=== PATIENT | female | born 1990 ===

== ENCOUNTER 2017-08-11 13:32 | Emergency (ER) | payer OTHER, BC ==
[2017-08-11 13:45] VITALS: BP 113/70; PULSE 76; RESP 16; TEMP 97.5; O2SAT 99
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
[2017-08-12 08:22] LABS: HEPATITIS B SURFACE AG Negative (NEGATIVE)
[2017-08-12 08:27] LABS: HEPATITIS B CORE AB NEGATIVE (NEGATIVE)
== END 2017-08-11 15:00 | disposition home or self-care (01) ==
LOC: H.ER 13:32
DX: Z77.21 Contact with and (suspected) exposure to potentially hazardous body fluids (principal); Y08.89XA Assault by other specified means, initial encounter

== ENCOUNTER 2017-08-22 06:57 | Emergency (ER) | payer OTHER, BC ==
[2017-08-22 07:17] VITALS: TEMP 97.3
[2017-08-22] MEDS ORDERED: Sodium Chloride 0.9% 1,000 ML IV ONE (07:42)
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
[2017-08-22 07:57] LABS: BASO % 0.2 % (0.0-2.0); EOS # 0.1 K/uL (0.0-0.7); EOS % 1.5 % (0.0-4.0); HEMOGLOBIN 13.4 g/dL (12.0-16.0); LYMPH # 2.3 K/uL (1.0-4.3); LYMPH % 26.2 % (20.0-40.0); MEAN CELL VOLUME 85.3 fl (81.0-99.0); MEAN CORPUSCULAR HEMOGLOBIN 28.4 pg (27.0-31.0); MEAN CORPUSCULAR HGB CONC 33.3 g/dL (33.0-37.0); MONO # 0.5 K/uL (0.0-0.8); MONO % 5.6 % (0.0-10.0); NEUT # 5.8 K/uL (1.8-7.0); NEUT % 66.5 % (50.0-75.0); NRBC % 0.1 % (0.0-0.0); RBC 4.73 Mil/uL (3.80-5.20); RED CELL DISTRIBUTION WIDTH 14.5 % (11.5-14.5); WHITE BLOOD COUNT 8.7 K/uL (4.8-10.8)
[2017-08-22 08:10] LABS: CALCIUM 9.4 mg/dL (8.4-10.2); GFR AFRICAN-AMERICAN > 60; GFR NON-AFRICAN AMERICAN > 60
[2017-08-22 08:14] LABS: INR 1.1 (0.9-1.2); PROTHROMBIN TIME 12.3 Seconds (9.8-13.1)
[2017-08-22 08:15] LABS: PARTIAL THROMBOPLASTIN TIME 28.5 Seconds (25.6-37.1)
[2017-08-22] MEDS ORDERED: Iohexol 300 100 ML IJ ONE (08:16)
[2017-08-22] MEDS ORDERED: Sodium Chloride 0.9% 50 ML IV ONE (08:16)
[2017-08-22 08:25] LABS: BLOOD UREA NITROGEN 10 mg/dl (7-17)
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
[2017-08-22 11:18] VITALS: RESP 16
--- NOTE | 2017-08-22 12:32 | CARD ---
APPROVED REPORT EKG Measurement Heart [id number] NM [id number] <Conclusion> Normal sinus rhythm Normal ECG
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
[2017-08-22 13:22] VITALS: BP 113/86; PULSE 67; O2SAT 98
== END 2017-08-22 13:21 | disposition home or self-care (01) ==
LOC: H.ER 06:57
DX: S09.90XA Unspecified injury of head, initial encounter (principal); S49.92XA Unspecified injury of left shoulder and upper arm, initial encounter; V03.10XA Pedestrian on foot injured in collision with car, pick-up truck or van in traffic accident, initial encounter; Y92.410 Unspecified street and highway as the place of occurrence of the external cause; J45.909 Unspecified asthma, uncomplicated
CPT/HCPCS: 70450; 71260; 72125; 72128; 72131; 73030; 73080; 74177; 80048; 81025; 84484; 84703; 85025; 85610; 85730; 93005; 96374; 96376; 99284; J2270; J7040; Q9967

== ENCOUNTER 2017-08-27 17:51 | Emergency (ER) | payer OTHER, BC ==
[2017-08-27 18:55] VITALS: BP 114/71; PULSE 73; RESP 16; TEMP 98.6; O2SAT 99
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
[2017-08-27] MEDS ORDERED: Acetaminophen-Codeine 300/30 mg Tab PO ONE (22:32)
== END 2017-08-28 00:29 | disposition home or self-care (01) ==
LOC: H.ER 17:51
DX: M54.9 Dorsalgia, unspecified (principal)
CPT/HCPCS: 81025; 96372; 99281; J1885

== ENCOUNTER 2017-12-29 00:13 | Emergency (ER) | payer BC, OTHER ==
[2017-12-29 01:28] VITALS: BP 107/61; PULSE 72; RESP 18; O2SAT 98
[2017-12-29] MEDS ORDERED: Sodium Chloride 0.9% 1,000 ML IV STA (01:32)
[2017-12-29 02:50] LABS: BASO % 0.4 % (0.0-2.0); EOS # 0.2 K/uL (0.0-0.7); EOS % 1.9 % (0.0-4.0); HEMOGLOBIN 12.9 g/dL (12.0-16.0); LYMPH # 2.8 K/uL (1.0-4.3); LYMPH % 26.6 % (20.0-40.0); MEAN PLATELET VOLUME 8.8 fl (7.2-11.7); MONO # 0.7 K/uL (0.0-0.8); MONO % 6.7 % (0.0-10.0); NEUT # 6.7 K/uL (1.8-7.0); NEUT % 64.4 % (50.0-75.0); RBC 4.43 Mil/uL (3.80-5.20); RED CELL DISTRIBUTION WIDTH 14.9 % (11.5-14.5); WHITE BLOOD COUNT 10.4 K/uL (4.8-10.8)
[2017-12-29 03:00] LABS: ALB/GLOB RATIO 1.3 (1.0-2.1)
[2017-12-29 03:01] LABS: ALBUMIN 4.3 g/dL (3.5-5.0); ALT/SGPT 36 U/L (9-52); AST/SGOT 32 U/L (14-36); BLOOD UREA NITROGEN 13 mg/dl (7-17); CALCIUM 9.3 mg/dL (8.4-10.2); GFR AFRICAN-AMERICAN > 60; GFR NON-AFRICAN AMERICAN > 60
--- NOTE | 2017-12-29 03:32 | ED PDOC ---
HPI: Abdomen Time Seen by Provider: 12/29/17 01:03 Chief Complaint (Nursing): Abdominal Pain Chief Complaint (Provider): Left sided abdominal pain x 2 hours History Per: Patient History/Exam Limitations: no limitations Onset/Duration Of Symptoms: Hrs Outside of [place] travel?: No Associated Symptoms: denies: Fever, Chills, Nausea, Vomiting, Diarrhea, Loss Of Appetite, Back Pain, Chest Pain, Constipation, Urinary Symptoms Additional Complaint(s): 27 yo female with history of asthma presents with left sided abdominal pain x 2 hours. Sharp, intermittent, non-radiating. PT denies similar in the past. Pt reports normal BM today. Denies N/V/D. Pt has tolerated liquids since pain began. PT denies current pain. No fever/chills. Past Medical History Reviewed: Historical Data, Nursing Documentation, Vital Signs Vital Signs: Last Vital Signs Temp 98.6 F 12/29/17 01:00 Pulse 72 12/29/17 01:00 Resp 18 12/29/17 01:00 BP 107/61 12/29/17 01:00 Pulse Ox 98 12/29/17 01:00 - Medical History PMH: Asthma, Fractures (R KNEE HAIRLINE FX) - Surgical History Surgical History: No Surg Hx - Family History Family History: States: Unknown Family Hx - Living Arrangements Living Arrangements: With Family - Social History Current smoker - smoking cessation education provided: No Alcohol: Occasional - Immunization History Hx Tetanus Toxoid Vaccination: No Hx Influenza Vaccination: No Hx Pneumococcal Vaccination: No - Home Medications Home Medications: Ambulatory Orders Medication Instructions Recorded oxyCODONE/Acetaminophen [Percocet 1 ea PO TID PRN #12 tab 08/22/17 5/325 mg Tab] Cyclobenzaprine [Cyclobenzaprine 10 mg PO BID PRN #14 tab 08/27/17 HCl] Ibuprofen [Motrin Tab] 1 tab PO Q6 PRN #20 tab 08/27/17 - Allergies Allergies/Adverse Reactions: Allergies Allergy/AdvReac Type Severity Reaction Status Date / Time No Known Allergies Allergy Verified 12/29/17 01:21 Review of Systems ROS Statement: Except As Marked, All Systems Reviewed And Found Negative Constitutional: Negative for: Fever, Chills Gastrointestinal: Positive for: Abdominal Pain. Negative for: Nausea, Vomiting , Diarrhea Genitourinary Female: Negative for: Dysuria Physical Exam - Reviewed Nursing Documentation Reviewed: Yes Vital Signs Reviewed: Yes - Physical Exam Appears: Positive for: Well, Non-toxic, No Acute Distress Head Exam: Positive for: ATRAUMATIC, NORMAL INSPECTION, NORMOCEPHALIC Skin: Positive for: Normal Color, Warm, DRY Eye Exam: Positive for: Normal appearance ENT: Positive for: Normal ENT Inspection Neck: Positive for: Normal, Painless ROM Cardiovascular/Chest: Positive for: Regular Rate, Rhythm Respiratory: Positive for: Normal Breath Sounds. Negative for: Accessory Muscle Use, Respiratory Distress Gastrointestinal/Abdominal: Positive for: Normal Exam, Soft. Negative for: Tenderness, Guarding, Rebound Back: Positive for: Normal Inspection Extremity: Positive for: Normal ROM Neurologic/Psych: Positive for: Alert, Oriented - Laboratory Results Result Diagrams: 12/29/17 02:30 12/29/17 02:30 - ECG O2 Sat by Pulse Oximetry: 98 Medical Decision Making Medical Decision Making: All labs normal. Pt did not want pain medications in ER and reports no pain today. CT showing constipation. (+) hematuria, no sign of infection, no kidney stones on CT. Disposition - Clinical Impression Clinical Impression: Constipation - Patient ED Disposition Is Patient to be Admitted: No Counseled Patient/Family Regarding: Diagnosis, Need For Followup - Disposition Disposition: Routine/Home Disposition Time: 03:33 Condition: STABLE Instructions: Constipation in Adults Forms: [employer] (Paraguayan), [facility] ED School/Work Excuse
[2017-12-29 04:07] LABS: SQUAMOUS EPITHIAL 7 /hpf (0-5); URINE BACTERIA RARE (<OCC); URINE BILIRUBIN NEGATIVE (NEGATIVE); URINE BLOOD SMALL (NEGATIVE); URINE CALCIUM OXALATE CRYSTALS OCC /hpf (<OCC); URINE CLARITY SLIGHTY-CLOUDY (Clear); URINE COLOR YELLOW (YELLOW); URINE GLUCOSE (UA) NEG (Normal); URINE LEUKOCYTE ESTERASE NEG Leu/uL (Negative); URINE PROTEIN NEGATIVE (NEGATIVE); URINE UROBILINOGEN 0.2-1.0 mg/dL (0.2-1.0)
[2017-12-29 05:42] VITALS: TEMP 97.9
--- NOTE | 2017-12-29 16:08 | CT ---
PROCEDURE: CT Abdomen and Pelvis without intravenous contrast HISTORY: hematuria, left abdominal pain COMPARISON: Abdomen and pelvis CT with contrast 08/22/2017. TECHNIQUE: Helical CT of the abdomen and pelvis was performed without oral or intravenous contrast as per referring physician request. Contrast dose: None Radiation dose: Total exam DLP = 240.34 mGy-cm. This CT exam was performed using one or more of the following dose reduction techniques: Automated exposure control, adjustment of the mA and/or kV according to patient size, and/or use of iterative reconstruction technique. FINDINGS: LOWER THORAX: Unremarkable. LIVER: Unremarkable. No gross lesion or ductal dilatation. GALLBLADDER AND BILE DUCTS: Unremarkable. PANCREAS: Unremarkable. No gross lesion or ductal dilatation. SPLEEN: Unremarkable. ADRENALS: Unremarkable. No mass. KIDNEYS AND URETERS: No definite obstructive uropathy bilaterally. Multiple intrarenal calculi identified bilaterally with the largest measuring 4 mm greatest dimension at the lower pole right kidney and 5 mm at the midpole left kidney. No radiodense ureteral calculi are identified bilaterally which are normal in caliber. VASCULATURE: Unremarkable. No aortic aneurysm. BOWEL: Unremarkable. No obstruction. No gross mural thickening. APPENDIX: Unremarkable. Normal appendix. PERITONEUM: Unremarkable. No free fluid. No free air. LYMPH NODES: Unremarkable. No enlarged lymph nodes. BLADDER: Decompressed and appears otherwise unremarkable. REPRODUCTIVE: IUD in situ in utero once again. BONES: No acute fracture. OTHER FINDINGS: A small fat containing umbilical hernia is identified. IMPRESSION: No obstructive uropathy bilaterally or perinephric reaction. Multiple small intrarenal calculi identified bilaterally which are nonobstructive. If clinical concern for further abdominal or pelvic pathology remains, then follow-up abdomen and pelvis CT with oral and intravenous contrast recommended. Concordant preliminary report from [facility], 12/29/2017.
== END 2017-12-29 03:42 | disposition home or self-care (01) ==
LOC: H.ER 00:13
DX: K59.00 Constipation, unspecified (principal); J45.909 Unspecified asthma, uncomplicated
CPT/HCPCS: 74176; 80053; 81003; 81025; 85025; 87086; 96360; 99284; J7030